=== PATIENT | female | born 1970 | race Caucasian/White ===

== ENCOUNTER 2016-07-14 14:14 | Emergency (ER) | payer OTHER ==
[~2016-07-14] VITALS: Ht 154.9 cm; Wt 63.5 kg
[2016-07-14] MEDS ORDERED: NACL 0.9% 1,000 ML IV ONE (14:18)
[2016-07-14 14:19] VITALS: BP 122/79
[2016-07-14 14:45] LABS: HEMATOCRIT 46.2 % (36-48); HEMOGLOBIN 15.3 g/dL (12.0-16.0); MEAN CORPUSCULAR HEMOGLOBIN 29 pg (27-31); MEAN CORPUSCULAR HGB CONC 33 g/dL (33-37); MEAN CORPUSCULAR VOLUME 89 fL (80-94); PLATELET COUNT (AUTO) 222 K/uL (140-450); RED BLOOD CELL COUNT(AUTO) 5.19 MIL/uL (4.20-5.40); RED CELL DISTRIBUTION WIDTH 12.8 % (11.6-13.7); WHITE BLOOD COUNT (AUTO) 13.6 K/uL (4.8-10.8)
--- NOTE | 2016-07-14 14:49 | NUR ---
PATIENT BIB BLS TO [facility].
--- NOTE | 2016-07-14 14:50 | NUR ---
46/F BIBA C/O POSSIBLE CHEMICAL INGESTION x 45 MINUTES AGO. PT STATES SHE LEFT AN UNLABELLED WATER BOTTLE BEFORE GOING ON BREAK AT WORK, RETURNED AND DRANK AT THE SAME BOTTLE AND STATES IT WAS NOT WATER. PT STATES SHE VOMITED 4X AND WAS GIVEN ZOFRAN 4MG ODT EN ROUTE BY EMS. AAOX4 WITH EVEN AND STEADY GAIT; LUNGS CLEAR BL; HR EVEN AND REGULAR; PT DENIES ANY FEVER, CP, SOB, OR COUGH AT THIS TIME; PATIENT STATES PAIN OF 0/10 AT THIS TIME; VSS; PATIENT POSITIONED FOR COMFORT; HOB ELEVATED; BEDRAILS UP X2; BED DOWN. ER MD MADE AWARE OF PT STATUS.
[2016-07-14 14:58] LABS: ANION GAP 14.4 (8-16); CALCIUM 9.4 mg/dL (8.5-10.1); CARBON DIOXIDE 28.6 mmol/L (21-32); CHLORIDE 99 mmol/L (98-107); CREATININE 0.7 mg/dL (0.6-1.3); GFR ARICAN-AMERICAN 116 mL/min (>90); GFR NON ARICAN-AMERICAN 96 mL/min (>90); GLUCOSE 135 mg/dL (74-106); SODIUM SERUM 138 mmol/L (136-145); UREA NITROGEN, BLOOD 20 mg/dL (7-18)
[2016-07-14 15:01] LABS: ALANINE AMINOTRANSFERASE 30 U/L (12-78); ALBUMIN 4.2 g/dL (3.4-5.0); ALCOHOL, BLOOD < 3 mg/dL (<3); ALKALINE PHOSPHATASE 74 U/L (46-116); ASPARTATE AMINOTRANSFERASE 16 U/L (15-37); BILIRUBIN,DIRECT 0.1 mg/dL (0.0-0.3); TOTAL BILIRUBIN 0.5 mg/dL (0.0-1.0); TOTAL PROTEIN, SERUM 7.8 g/dL (6.4-8.2)
[2016-07-14 15:02] LABS: PARTIAL THROMBOPLASTIN TIME 25.4 secs (22-35.6); PROTHROMBIN TIME 9.4 secs (10.8-13.4)
[2016-07-14 15:09] LABS: BAND % (MANUAL) 2 % (0-8); EOSINOPHILS % (MANUAL) 3 % (0-4); LYMPHOCYTES % (MANUAL) 26 % (20-46); MONOCYTES % (MANUAL) 4 % (5-12); NEUTROPHILS % (MANUAL) 65 (43-65); PLATELET ESTIMATE ADEQUATE
[2016-07-14 15:19] LABS: APPEARANCE,URINE CLEAR (CLEAR); BILIRUBIN,URINE NEGATIVE (NEGATIVE); BLOOD, URINE TRACE-L (NEGATIVE); COLOR,URINE YELLOW (YELLOW); LEUKOCYTE ESTERASE ,URINE NEGATIVE (NEGATIVE); NITRITE, URINE NEGATIVE (NEGATIVE); PROTEIN,URINE NEGATIVE (NEGATIVE); UGLUCOSE NEGATIVE (NEGATIVE); UROBILINOGEN,URINE 0.2 EU/dL (0.2 - 1)
[2016-07-14 15:26] LABS: RBC,URINE 0-5 (RARE) /HPF (0-5)
[2016-07-14 15:27] LABS: BACTERIA,URINE 0-2 (RARE) /HPF (None Seen); SQUAMOUS EPITHELIAL CELL,UR 0-3 (FEW) /LPF (0-3 (FEW)); WBC,URINE 0-5 (RARE) /HPF (0-5)
[2016-07-14 15:30] LABS: AMPHETAMINE, URINE NEG. ng/ml (NEG <=1000); BARBITURATE, URINE NEG. ng/ml (NEG <=200); BENZODIAZEPINE, URINE NEG. ng/mL (NEG <=200); CANNABINOID, URINE POS. ng/mL (NEG <=50); COCAINE, URINE NEG. ng/mL (NEG <=300); OPIATE, URINE NEG. ng/mL (NEG <=2000); PHENCYCLIDINE SCREEN,URINE NEG. ng/mL (NEG <=25)
[2016-07-14 16:29] VITALS: BP 122/79
--- NOTE | 2016-07-14 16:30 | NUR ---
Patient discharged with v/s stable. Written and verbal after care instructions given and explained. Patient verbalized understanding. Ambulatory with steady gait. All questions addressed prior to discharge. Advised to follow up with PMD.
== END 2016-07-14 16:30 | disposition home or self-care (01) ==
LOC: MED 14:14
DX: T49.2X1A Poisoning by local astringents and local detergents, accidental (unintentional), initial encounter (principal); R03.0 Elevated blood-pressure reading, without diagnosis of hypertension; R11.2 Nausea with vomiting, unspecified; R07.0 Pain in throat; Z88.0 Allergy status to penicillin; Y92.89 Other specified places as the place of occurrence of the external cause
CPT/HCPCS: 36415; 80053; 80305; 81001; 81025; 82248; 85025; 85610; 85730; 93005; 96360; 99285; G0482; J7030

== ENCOUNTER 2017-11-12 12:12 | Emergency (ER) | payer SELFPAY ==
[~2017-11-12] VITALS: Ht 154.9 cm; Wt 68.0 kg
[2017-11-12 12:20] VITALS: BP 102/65
--- NOTE | 2017-11-12 12:23 | NUR ---
PT. CAME INTO THE ED UE TO R SHOUDLER PAIN THAT RADIATES TO R SIDE OF NECK X 1 DAY. PT. STATES " I WAS CLEANING THE HOUSE YESTERDAY AND IT JUST STARTED FEELING SOER BUT TODAY IN THE MORNING THE PAIN WAS WORSE AND IT HURTS TO MOVE MY ARM". DENIES ANY FALL OR INJURY AT THIS TIME. 10/10 SHARP RADIATING PAIN FROM R SHOULDER TO R SIDE OF NECK. CAP REFILL LESS THAN 3 SEC. SENSATION INTACT. ER MD NOTIFIED. WILL CONTINUE TO MONITOR. SAFETY PRECAUTIONS IMPLEMENTED.
[2017-11-12] MEDS ORDERED: KETOROLAC 60 MG/2 ML VIAL IM ONE (12:30)
--- NOTE | 2017-11-12 12:48 | NUR ---
XRAY AT BEDSIDE AT THIS TIME.
[2017-11-12] MEDS ORDERED: LIDOCAINE 2% 1000 MG/50 ML VIAL INJ ONE (13:00)
[2017-11-12] MEDS ORDERED: TRIAMCINOLONE 10 MG/ML 5ML VIAL IA ONE (13:00)
[2017-11-12 13:39] VITALS: BP 106/62
== END 2017-11-12 13:39 | disposition home or self-care (01) ==
LOC: MED 12:12
DX: M75.31 Calcific tendinitis of right shoulder (principal); F17.200 Nicotine dependence, unspecified, uncomplicated; Z88.0 Allergy status to penicillin; Z90.49 Acquired absence of other specified parts of digestive tract
CPT/HCPCS: 73030; 96372; 99284; J1885; J2001; J3301; Q0092